=== PATIENT | female | born 1965 | race Two or more races ===

== ENCOUNTER 2018-05-31 13:05 | Emergency (ER) | payer BC ==
[~2018-05-31] VITALS: Ht 157.5 cm; Wt 65.8 kg
[2018-05-31] MEDS ORDERED: KETOROLAC TROMETHAMINE INJ 30 MG/ML VIAL IM ONE (13:30)
--- NOTE | 2018-05-31 13:30 | NUR ---
PATIENT C/O BACK PAIN ACUTE EXACERBATION. DENIES FALLING OR ANY ACTIVITY PROVOKING PAIN. PATIENT STATES HX OF BACK PAIN AND GETS SHOTS PRN WITH MD TO HELP CONTROL BACK PAIN. MD AT BEDSIDE
[2018-05-31] MEDS ORDERED: KETOROLAC TROMETHAMINE INJ 30 MG/ML VIAL ONE (13:38)
--- NOTE | 2018-05-31 13:41 | NUR ---
PATIENT C/O NAUSEA S/P TAKING VIDODINE AT HOME AND HASNT EATED. NOTIFIED DR ONEILL
[2018-05-31] MEDS ORDERED: ONDANSETRON 4 MG TAB.RAPDIS ONE (13:58)
[2018-05-31] MEDS ORDERED: ONDANSETRON 4 MG TAB.RAPDIS SL ONE (14:00)
--- NOTE | 2018-05-31 14:38 | NUR ---
PATIENT STATES SHE FEELS BETTER. ABLE TO WALK AND ADL'S DONE INDEPENDENTLY. Patient discharged to home in stable condition. Written and verbal after care instructions given. Patient verbalizes understanding of instruction. RX PROVIDED AND EDUCATED. PATIENT STATES UNDERSTANDING.
[2018-05-31 14:39] VITALS: BP 134/74
== END 2018-05-31 14:40 | disposition home or self-care (01) ==
LOC: ER 13:10
DX: M54.5 Low back pain (principal); G89.29 Other chronic pain
CPT/HCPCS: 96372; 99283; A4606; J1885; Q0162; Z7610